=== PATIENT | male | born 1980 | race Caucasian/White ===

== ENCOUNTER 2017-03-04 23:29 | Emergency (ER) | payer MEDICARE, MEDICAID ==
[~2017-03-04] VITALS: Ht 180.3 cm; Wt 79.4 kg
[~2017-03-04 23:29] MED LIST: HYOS0.1216 PO; PRM25T PO
[2017-03-05] MEDS: LIDOCAINE 2% 20 ML (XYLOCAINE) VIAL INJ ONE (00:30)
[2017-03-05] MEDS ORDERED: LIDOCAINE 2% 20 ML (XYLOCAINE) VIAL ONE (00:30)
--- NOTE | 2017-03-05 00:36 | ED Integumentary General ---
General Chief Complaint: Skin/Wound Problems Stated Complaint: ABD PAIN Nursing Triage Note: PT TO ED 8 W/ SON FOR C/O POSS ABSCESS TO RL ABD ONSET YESTERDAY, WORSE TODAY. Source: patient Exam Limitations: no limitations History of Present Illness Time seen by provider: 00:32 Initial Comments Patient noticed a red bump like an ingrown hair on his right inguinal skin along the crease where the elastic of his underwear runs. This started last night and is progressively gotten more red and painful and swollen. He is not on any recent antibiotics, steroids, illness presents and is not diabetic. He denies fevers, chills, malaise, diarrhea Allergies and Home Medications Allergies Coded Allergies: No Known Allergies (Unverified Allergy, Mild, 08/23/09) Home Medications Sulfamethoxazole/Trimethoprim 1 Each Tablet, 1 EACH PO BID for 7 Days, #13 Ref 0 Prescribed by: SRIRAM SWIFT on 03/05/17 0047 Constitutional: No chills, No diaphoresis, No fever Respiratory: No cough, No short of breath Gastrointestinal: see HPI, No abdominal pain, No constipation, No diarrhea, No nausea, No vomiting Genitourinary: No discharge, No dysuria Musculoskeletal: No back pain, No joint pain Skin: see HPI, change in color, No pruritus, rash Past Cdjyfzh-Mpuoai-Sebyjv Hx Patient Social History Alcohol Use: Occasionally Uses Recreational Drug Use: No Smoking Status: Current Everyday Smoker Type Used: Cigarettes Recent Foreign Travel: No Contact w/Someone Who Travel: No Recent Infectious Disease Expo: No Recent Hopitalizations: No Physical Exam Vital Signs Vital Sign - Last 12Hours 03/04/17 23:40 Temp 95.3 Pulse 74 Resp 20 B/P (MAP) 122/95 Pulse Ox 99 O2 Delivery Room Air Capillary Refill : Less Than 3 Seconds General Appearance: WD/WN, no apparent distress Neck: supple, normal inspection Cardiovascular: normal peripheral pulses, regular rate, rhythm Gastrointestinal: normal bowel sounds, non tender, soft, other (superficial the right angle canal is a 1.5 cm diameter red raised erythematous tender fluctuant nodule with a central black pore and a scant amount of Drainage.) Neurologic/Psychiatric: alert, oriented x 3 I&D : Site: right inguinal Blade Size: 11 I & D Procedure: betadine prep, no Wound Packing Progress Cleaned with alcohol and iodine then a needle with 2% lidocaine without epinephrine was infiltrated around the wound and a ring block fashion. Once the patient was ascertained to be numb and then inserted the needle into the area of fluctuance and aspirated about 10 to the [facility]. Went drainage. The 11 blade was then introduced and a cross smith fashion and a modest amount of purulence was expressed. Loculations were broke up with a Q-tip. Light areole or gauze dressing was applied and the patient tolerated the procedure well. Progress/Results/Core Measures Results/Orders My Orders Orders - SRIRAM SWIFT Lidocaine 2% Injection 20 Ml (Xylocaine (03/05/17 00:30) Lidocaine 2% Injection 20 Ml (Xylocaine (03/05/17 00:45) Sulfamethoxazole/Trimet Ds Tab (Bactrim (03/05/17 01:00) Medications Given in ED Current Medications Medications Dose Ordered Sig/Samantha Route Start Time Stop Time Status Last Admin Dose Admin Trimethoprim/ Sulfamethoxazole 1 ea ONCE ONCE PO 03/05/17 01:00 03/05/17 01:01 DC 03/05/17 00:55 1 EA Vital Signs/I&O Vital Sign - Last 12Hours 03/04/17 23:40 Temp 95.3 Pulse 74 Resp 20 B/P (MAP) 122/95 Pulse Ox 99 O2 Delivery Room Air Blood Pressure Mean: 104 Departure Impression Impression: Primary Impression: Abscess Disposition: 01 HOME, SELF-CARE Condition: Improved Departure-Patient Inst. Decision time for Depature: 00:45 Referrals: [facility] (PCP/Family) Primary Care Physician Patient Instructions: Abscess Incision and Drainage (DC) Add. Discharge Instructions: Keep the site clean with soap and water. It's okay to bathe. Do not place anything in the wound is is good for it to drain and bleed. Take the antibiotics either until completion or 2 days after your wound is healed. If you have new or worrisome symptoms such as fevers nausea or increasing pain return to your primary care physician. All discharge instructions reviewed with patient and/or family. Voiced understanding. Scripts Sulfamethoxazole/Trimethoprim (Bactrim Ds Tablet) 1 Each Tablet 1 EACH PO BID for 7 Days, #13 TAB 0 Refills Prov: SRIRAM SWIFT 03/05/17 Copy Copies To 1: MOISES AYALA TITUS J Mar 05, 2017 00:36
[2017-03-05] MEDS ORDERED: SULF1TAB35 PO (00:47)
[2017-03-05] MEDS: TRIM/SULFAMETH 160/800 (SEPTRA DS) TAB PO ONE (00:55)
[2017-03-05 00:57] VITALS: BP 0/0
== END 2017-03-05 00:57 | disposition home or self-care (01) ==
LOC: EDUNIT# 23:29 → ER 23:33
DX: L02.214 Cutaneous abscess of groin (principal); F17.210 Nicotine dependence, cigarettes, uncomplicated
CPT/HCPCS: 99283

== ENCOUNTER 2018-05-04 14:11 | Emergency (ER) | payer MEDICARE, MEDICAID ==
[~2018-05-04] VITALS: Ht 180.3 cm; Wt 84.4 kg
[~2018-05-04 14:11] MED LIST changes: +SULF1TAB35 PO
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
--- OUTSIDE RECORDS SUMMARY | 2018-05-04 14:16 | XMS REPORT ---
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 Name Role Phone ROCHELLE PARSONS CP Unavailable Allergies No Known Allergies Problems Problem Type Condition Code Onset Dates Condition Status Problem Acute sinusitis, unspecified 461.9 Active Assessment Encounter for immunization Z23 Active Problem Dermatophytosis of nail 110.1 Active Medications No Known Medications Procedures Procedure Coding System Code Date SINGLE IMMUNIZATION ADMIN CPT-4 54162 May 24, 2015 FLUARIX QUAD (3 & UP)-GSK-2014 CPT-4 65428 May 24, 2015 Results No Known Results Immunizations Vaccine Administration Date FLUARIX QUAD (3 & UP)-GSK-2014May 24, 2015 Summary Purpose [employer] Submission
[2018-05-04 14:41] LABS: BASOPHILS # (AUTO) 0.1 10^3/uL (0.0-0.1); BASOPHILS % (AUTO) 1 % (0-10); EOSINOPHILS # (AUTO) 0.1 10^3/uL (0.0-0.3); EOSINOPHILS % (AUTO) 1 % (0-10); HEMATOCRIT 48 % (40-54); HEMOGLOBIN 16.3 G/DL (13.3-17.7); LYMPHOCYTES # (AUTO) 1.9 X 10^3 (1.0-4.0); LYMPHOCYTES % (AUTO) 19 % (12-44); MEAN CORPUSCULAR HEMOGLOBIN 28 PG (25-34); MEAN CORPUSCULAR HGB CONC 34 G/DL (32-36); MEAN CORPUSCULAR VOLUME 81 FL (80-99); MEAN PLATELET VOLUME 9.4 FL (7.4-10.4); MONOCYTES # (AUTO) 0.8 X 10^3 (0.0-1.0); MONOCYTES % (AUTO) 8 % (0-12); NEUTROPHILS # (AUTO) 7.2 X 10^3 (1.8-7.8); NEUTROPHILS % (AUTO) 71 % (42-75); PLATELET COUNT 304 10^3/uL (130-400); RED BLOOD COUNT 5.93 10^6/uL (4.35-5.85); RED CELL DISTRIBUTION WIDTH 15.2 % (10.0-14.5); WHITE BLOOD COUNT 10.1 10^3/uL (4.3-11.0)
--- NOTE | 2018-05-04 14:56 | ED General ---
General Chief Complaint: Head/Cervical Problems Stated Complaint: NECK PAIN;KNOT Nursing Triage Note: PT AMB TO ROOM #5 W/O DIFFICULTY. A&OX4. CO KNOT NOTED TO LT POSTERIOR NECK THAT WAS NOTICIED UPON WAKING THIS AM. PT REPORTS PAINFUL TO TOUCH, OTHERWISE UNNOTICED. PT AFEBRILE. DENIES RECENT FEVER OR CHILLS. Nursing Sepsis Screen: No Definite Risk Source of Information: Patient Exam Limitations: No Limitations History of Present Illness Date Seen by Provider: May 04, 2018 Time Seen by Provider: 14:53 Initial Comments The patient is a 38-year-old white male with a speech impediment. He reports that he noticed a lump on his neck today and was worried about the possibility of cancer because his mother of pancreatic cancer. He denies any dental pain or come tenderness. He has had no fever. Timing/Duration: 4-6 Hours Allergies and Home Medications Allergies Coded Allergies: No Known Allergies (Unverified Allergy, Mild, 08/23/09) Home Medications Sulfamethoxazole/Trimethoprim 1 Each Tablet, 1 EACH PO BID Prescribed by: SRIRAM SWIFT on 03/05/17 0047 Patient Home Medication List Home Medication List Reviewed: Yes Review of Systems Review of Systems Constitutional: see HPI EENTM: no symptoms reported Respiratory: no symptoms reported Cardiovascular: no symptoms reported Gastrointestinal: no symptoms reported Genitourinary: no symptoms reported Musculoskeletal: no symptoms reported Skin: no symptoms reported Past Txohzdf-Etxqgi-Doztzd Hx Patient Social History Type Used: Cigarettes Recent Foreign Travel: No Contact w/Someone Who Travel: No Recent Infectious Disease Expo: No Recent Hopitalizations: No Past Medical History Surgeries: No Respiratory: No Cardiac: No Neurological: No Genitourinary: No Gastrointestinal: No Musculoskeletal: No Endocrine: No HEENT: No Cancer: No Psychosocial: No Integumentary: No Blood Disorders: No Physical Exam Vital Signs Vital Signs - First Documented 05/04/18 14:14 Temp 97.3 Pulse 83 Resp 18 B/P (MAP) 154/101 (118) Pulse Ox 99 O2 Delivery Room Air Capillary Refill : Less Than 3 Seconds Height, Weight, BMI Height: 5'11.00" Weight: 186lbs. oz. 84.134829em; BMI Method:Stated General Appearance: No Apparent Distress, WD/WN Eyes: Bilateral Eye Normal Inspection HEENT: Normal ENT Inspection, Other (missing teeth. Others have metallic caps. ) Neck: Normal Inspection Respiratory: Chest Non Tender, Lungs Clear, Normal Breath Sounds, No Accessory Muscle Use, No Respiratory Distress Cardiovascular: Regular Rate, Rhythm, No Edema, No Gallop, No JVD, No Murmur, Normal Peripheral Pulses Gastrointestinal: Normal Bowel Sounds, No Organomegaly, No Pulsatile Mass, Non Tender, Soft Neurologic/Psychiatric: Alert, Oriented x3, No Motor/Sensory Deficits, Normal Mood/Affect Skin: Normal Color, Warm/Dry Lymphatic: No Adenopathy Comments There is a 4 mm in diameter rubbery nodule at the base of the left neck along the border of the trapezius. Progress/Results/Core Measures Suspected Sepsis Recent Fever Within 48 Hours: No Infection Criteria Present: None New/Unexplained Altered Menta: No Sepsis Screen: No Definite Risk SIRS Temperature:97.3 Pulse: 83 Respiratory Rate: 18 Laboratory Tests 05/04/18 14:30: White Blood Count 10.1 Blood Pressure 154 /101 Mean: 118 Laboratory Tests 05/04/18 14:30: Creatinine 0.92, Platelet Count 304, Total Bilirubin 0.3 Results/Orders Lab Results Laboratory Tests Test 05/04/18 14:30 Range/Units White Blood Count 10.1 4.3-11.0 10^3/uL Red Blood Count 5.93 H 4.35-5.85 10^6/uL Hemoglobin 16.3 13.3-17.7 G/DL Hematocrit 48 40-54 % Mean Corpuscular Volume 81 80-99 FL Mean Corpuscular Hemoglobin 28 25-34 PG Mean Corpuscular Hemoglobin Concent 34 32-36 G/DL Red Cell Distribution Width 15.2 H 10.0-14.5 % Platelet Count 304 130-400 10^3/uL Mean Platelet Volume 9.4 7.4-10.4 FL Neutrophils (%) (Auto) 71 42-75 % Lymphocytes (%) (Auto) 19 12-44 % Monocytes (%) (Auto) 8 0-12 % Eosinophils (%) (Auto) 1 0-10 % Basophils (%) (Auto) 1 0-10 % Neutrophils # (Auto) 7.2 1.8-7.8 X 10^3 Lymphocytes # (Auto) 1.9 1.0-4.0 X 10^3 Monocytes # (Auto) 0.8 0.0-1.0 X 10^3 Eosinophils # (Auto) 0.1 0.0-0.3 10^3/uL Basophils # (Auto) 0.1 0.0-0.1 10^3/uL Sodium Level 135 135-145 MMOL/L Potassium Level 4.1 3.6-5.0 MMOL/L Chloride Level 102 98-107 MMOL/L Carbon Dioxide Level 22 21-32 MMOL/L Anion Gap 11 5-14 MMOL/L Blood Urea Nitrogen 10 7-18 MG/DL Creatinine 0.92 0.60-1.30 MG/DL Estimat Glomerular Filtration Rate > 60 BUN/Creatinine Ratio 11 Glucose Level 102 70-105 MG/DL Calcium Level 9.7 8.5-10.1 MG/DL Corrected Calcium 9.3 8.5-10.1 MG/DL Total Bilirubin 0.3 0.1-1.0 MG/DL Aspartate Amino Transf (AST/SGOT) 23 5-34 U/L Alanine Aminotransferase (ALT/SGPT) 33 0-55 U/L Alkaline Phosphatase 63 40-136 U/L Total Protein 8.3 H 6.4-8.2 GM/DL Albumin 4.5 3.2-4.5 GM/DL My Orders Orders - KEN SOUSA MD Cbc With Automated Diff (05/04/18 14:15) Comprehensive Metabolic Panel (05/04/18 14:15) Erythrocyte Sedimentation Rate (05/04/18 14:15) Vital Signs/I&O 05/04/18 14:14 Temp 97.3 Pulse 83 Resp 18 B/P (MAP) 154/101 (118) Pulse Ox 99 O2 Delivery Room Air Capillary Refill : Less Than 3 Seconds Blood Pressure Mean: 118 Departure Impression Primary Impression: lymph node Disposition: HOME, SELF-CARE Condition: Stable/Unchanged Departure-Patient Inst. Decision time for Depature: 14:59 Referrals: [facility] (PCP/Family) Primary Care Physician Add. Discharge Instructions: All discharge instructions reviewed with patient and/or family. Voiced understanding. This is a lymph node. The body use these to help fight inflammation or infection. It can often take several months for this to go down in size. If it does not reduce in size and go away or if in fact others, and that area you should see your provider. KEN SOUSA MD May 04, 2018 14:56
[2018-05-04 14:57] LABS: ALANINE AMINOTRANSFERASE 33 U/L (0-55); ALBUMIN 4.5 GM/DL (3.2-4.5); ALKALINE PHOSPHATASE 63 U/L (40-136); BILIRUBIN,TOTAL 0.3 MG/DL (0.1-1.0); BUN/CREATININE RATIO 11; CALCIUM 9.7 MG/DL (8.5-10.1); CARBON DIOXIDE 22 MMOL/L (21-32); CHLORIDE 102 MMOL/L (98-107); CREATININE SERUM 0.92 MG/DL (0.60-1.30); GFR ESTIMATED > 60; GLUCOSE 102 MG/DL (70-105); POTASSIUM 4.1 MMOL/L (3.6-5.0); SODIUM 135 MMOL/L (135-145); TOTAL PROTEIN 8.3 GM/DL (6.4-8.2)
[2018-05-04 15:14] LABS: ERYTHROCYTE SEDIMENTATION RATE 1 MM/HR (0-15)
[2018-05-04 15:25] VITALS: BP 125/80
== END 2018-05-04 15:25 | disposition home or self-care (01) ==
LOC: EDUNIT# 14:11 → ER 14:12
DX: R59.0 Localized enlarged lymph nodes (principal)
CPT/HCPCS: 36415; 80053; 85025; 85652; 99282

== ENCOUNTER 2019-05-05 17:48 | Emergency (ER) | payer MEDICARE, MEDICAID ==
[2019-05-05] MEDS ORDERED: SULF1TAB35 PO (18:18)
--- NOTE | 2019-05-05 18:19 | ED Upper Extremity ---
General Chief Complaint: Upper Extremity Stated Complaint: RT ARM SWOLLEN Nursing Triage Note: noticed swollen are on R forearm two days, states the swelling is getting worse and had to leave work Nursing Sepsis Screen: No Definite Risk Source: patient Exam Limitations: no limitations History of Present Illness Date Seen by Provider: May 05, 2019 Time Seen by Provider: 18:16 Initial Comments Abscess dorsal right forearm for a few days Onset: other Severity: moderate Pain/Injury Location: right forearm Method of Injury: unknown Modifying Factors: Worse With Movement Allergies and Home Medications Allergies Coded Allergies: No Known Allergies (Unverified Allergy, Mild, 08/23/09) Home Medications Sulfamethoxazole/Trimethoprim 1 Each Tablet, 1 EACH PO BID Prescribed by: SRIRAM SWIFT on 03/05/17 0047 Patient Home Medication List Home Medication List Reviewed: Yes Review of Systems Constitutional: see HPI; No chills, No fever EENTM: see HPI Respiratory: no symptoms reported Cardiovascular: no symptoms reported Genitourinary: no symptoms reported Musculoskeletal: no symptoms reported Skin: see HPI Psychiatric/Neurological: No Symptoms Reported Past Rpxjohm-Phxrbu-Yycdmp Hx Patient Social History Alcohol Use: Denies Use Recreational Drug Use: No Type Used: Cigarettes 2nd Hand Smoke Exposure: No Recent Foreign Travel: No Contact w/Someone Who Travel: No Recent Infectious Disease Expo: No Recent Hopitalizations: No Physical Abuse: No Sexual Abuse: No Mistreated: No Fear: No Immunizations Up To Date Tetanus Booster (TDap): Unknown Seasonal Allergies Seasonal Allergies: No Past Medical History Surgeries: No Respiratory: No Cardiac: No Neurological: No Genitourinary: No Gastrointestinal: No Musculoskeletal: No Endocrine: No HEENT: No Cancer: No Psychosocial: No Integumentary: No Blood Disorders: No Physical Exam Vital Signs Vital Signs - First Documented 05/05/19 17:52 Temp 37.1 Pulse 93 Resp 18 B/P (MAP) 147/89 (108) Capillary Refill : Less Than 3 Seconds Height, Weight, BMI Height: 5'11.00" Weight: 186lbs. oz. 84.915488iq; BMI Method:Stated General Appearance: WD/WN, no apparent distress Respiratory: no respiratory distress, no accessory muscle use Shoulder: normal inspection, non-tender Elbow/Forearm: Right (Abscess quarter sized) Wrist: Yes normal inspection Hand: normal inspection, non-tender Procedures/Interventions I&D : Blade Size: 11 Progress Culture collected Progress/Results/Core Measures Results/Orders Vital Signs/I&O 05/05/19 17:52 Temp 37.1 Pulse 93 Resp 18 B/P (MAP) 147/89 (108) Blood Pressure Mean: 108 Departure Impression Primary Impression: Abscess Disposition: 01 HOME, SELF-CARE Condition: Stable Departure-Patient Inst. Decision time for Depature: 18:16 Referrals: [facility] (PCP/Family) Primary Care Physician Patient Instructions: Abscess Incision and Drainage Add. Discharge Instructions: 1. change the dressing as needed 2. Antibody as directed 3. Return to ER for any concerns. Scripts Sulfamethoxazole/Trimethoprim (Bactrim Ds Tablet) 1 Each Tablet 1 EACH PO BID, #14 TAB Prov: AMANDO CHAMBERS APRN 05/05/19 AMANDO CHAMBERS APRN May 05, 2019 18:19
[2019-05-05 18:22] VITALS: BP 147/89
== END 2019-05-05 18:22 | disposition home or self-care (01) ==
LOC: EDUNIT# 17:48 → ER 17:49
DX: L02.413 Cutaneous abscess of right upper limb (principal)
CPT/HCPCS: 87070; 87077; 87186; 87205; 99282

== ENCOUNTER 2021-12-15 07:56 | Emergency (ER) | payer MEDICAID, MEDICARE ==
[~2021-12-15] VITALS: Ht 180 cm; Wt 83.1 kg
[~2021-12-15 07:56] MED LIST changes: -SULF1TAB35 PO; +SULF1TAB38 PO
[2021-12-15] MEDS ORDERED: ASPIRIN 81 MG CHEW (CHILDREN'S ASA) PO ONE (08:15)
[2021-12-15] MEDS ORDERED: NITROGLYCERIN 0.4 MG SL TABS BTL 25'S SL PRN (08:15)
[2021-12-15 08:20] LABS: BASOPHILS # (AUTO) 0.1 10^3/uL (0.0-0.1); BASOPHILS % (AUTO) 1 % (0-10); EOSINOPHILS # (AUTO) 0.1 10^3/uL (0.0-0.3); EOSINOPHILS % (AUTO) 2 % (0-10); HEMATOCRIT 48 % (40-54); HEMOGLOBIN 15.3 g/dL (13.3-17.7); LYMPHOCYTES # (AUTO) 1.9 10^3/uL (1.0-4.0); LYMPHOCYTES % (AUTO) 25 % (12-44); MEAN CORPUSCULAR HEMOGLOBIN 27 pg (25-34); MEAN CORPUSCULAR HGB CONC 32 g/dL (32-36); MEAN CORPUSCULAR VOLUME 83 fL (80-99); MEAN PLATELET VOLUME 9.2 fL (9.0-12.2); MONOCYTES # (AUTO) 0.7 10^3/uL (0.0-1.0); MONOCYTES % (AUTO) 9 % (0-12); NEUTROPHILS # (AUTO) 4.8 10^3/uL (1.8-7.8); NEUTROPHILS % (AUTO) 63 % (42-75); PLATELET COUNT 322 10^3/uL (130-400); WHITE BLOOD COUNT 7.6 10^3/uL (4.3-11.0)
[2021-12-15 08:31] LABS: ALBUMIN 4.6 GM/DL (3.2-4.5); CHLORIDE 103 MMOL/L (98-107); POTASSIUM 4.2 MMOL/L (3.6-5.0); SODIUM 140 MMOL/L (135-145)
[2021-12-15 08:32] LABS: CALCIUM 10.3 MG/DL (8.5-10.1)
[2021-12-15 08:33] LABS: GLUCOSE 111 MG/DL (70-105); TOTAL PROTEIN 8.1 GM/DL (6.4-8.2)
[2021-12-15 08:34] LABS: CARBON DIOXIDE 25 MMOL/L (21-32)
[2021-12-15 08:35] LABS: BILIRUBIN,TOTAL 0.3 MG/DL (0.1-1.0)
[2021-12-15 08:36] LABS: PROTHROMBIN TIME PATIENT 13.6 SEC (12.2-14.7)
[2021-12-15 08:37] LABS: ALKALINE PHOSPHATASE 65 U/L (40-136); CREATININE SERUM 0.95 MG/DL (0.60-1.30); GFR ESTIMATED 104
[2021-12-15 08:38] LABS: BUN/CREATININE RATIO 15
[2021-12-15 08:40] LABS: ALANINE AMINOTRANSFERASE 24 U/L (0-55); MAGNESIUM 1.9 MG/DL (1.6-2.4)
--- NOTE | 2021-12-15 08:40 | ED Chest Pain ---
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 Source: patient Exam Limitations: no limitations History of Present Illness Date Seen by Provider: December 15, 2021 Time Seen by Provider: 07:57 Initial Comments This 41-year-old gentleman presents to the emergency room with complaints of 2 to 3 days of consistent chest pain in the region of the left pectoralis muscle. He states pain is sometimes improved with deep breathing and feels like a soreness at this time. He rates the pain as 10 at its worst. This morning it ranges from 6-8. He denies any associated symptoms such as shortness of breath, lightheadedness, diaphoresis, or nausea. He had been seen at the [facility] clinic and was advised to seek cardiology referral for intermittent chest pain over the past few months. He declined the cardiology referral due to lack of healthcare coverage. He denies any significant health history. He is a smoker. He is notably hypertensive during initial assessment. Allergies and Home Medications Allergies Coded Allergies: No Known Allergies (Unverified Allergy, Mild, 08/23/09) Patient Home Medication List Home Medication List Reviewed: Yes Sulfamethoxazole/Trimethoprim (Bactrim Ds Tablet) 1 Each Tablet, 1 EACH PO BID Prescribed by: SRIRAM SWIFT on 03/05/17 0047 Sulfamethoxazole/Trimethoprim (Bactrim Ds Tablet) 1 Each Tablet, 1 EACH PO BID Prescribed by: AMANDO CHAMBERS on 05/05/19 1818 Review of Systems Review of Systems Constitutional: no symptoms reported EENTM: No Symptoms Reported Respiratory: No Symptoms Reported Cardiovascular: See HPI Gastrointestinal: No Symptoms Reported Genitourinary: No Symptoms Reported Musculoskeletal: no symptoms reported Skin: no symptoms reported Psychiatric/Neurological: No Symptoms Reported Endocrine: No Symptoms Reported Hematologic/Lymphatic: No Symptoms Reported Past Oxssojt-Pqgpbv-Azlwgv Hx Patient Social History Tobacco Use?: Yes Tobacco type used: Cigarettes Substance use?: No Alcohol Use?: No Immunizations Up To Date Tetanus Booster (TDap): Unknown Seasonal Allergies Seasonal Allergies: No Past Medical History Surgery/Hospitalization HX: testicle surgery years ago Surgeries: Yes Testicular (Related to trauma) Respiratory: No Cardiac: No Neurological: No Genitourinary: No Gastrointestinal: No Musculoskeletal: No Endocrine: No HEENT: No Cancer: No Psychosocial: No Integumentary: No Blood Disorders: No Physical Exam Vital Signs Vital Signs - First Documented 12/15/21 08:07 Temp 37.1 Pulse 76 Resp 17 B/P (MAP) 183/104 (130) Pulse Ox 98 O2 Delivery Room Air Capillary Refill : Less Than 3 Seconds Height, Weight, BMI Height: 5'11.00" Weight: 186lbs. oz. 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 Norm as Tested Skin: Normal Color, Warm/Dry Progress/Results/Core Measures Results/Orders Lab Results Laboratory Tests Test 12/15/21 08:01 12/15/21 10:10 Range/Units White Blood Count 7.6 4.3-11.0 10^3/uL Red Blood Count 5.77 H 4.30-5.52 10^6/uL Hemoglobin 15.3 13.3-17.7 g/dL Hematocrit 48 40-54 % Mean Corpuscular Volume 83 80-99 fL Mean Corpuscular Hemoglobin 27 25-34 pg Mean Corpuscular Hemoglobin Concent 32 32-36 g/dL Red Cell Distribution Width 14.5 10.0-14.5 % Platelet Count 322 130-400 10^3/uL Mean Platelet Volume 9.2 9.0-12.2 fL Immature Granulocyte % (Auto) 1 % Neutrophils (%) (Auto) 63 42-75 % Lymphocytes (%) (Auto) 25 12-44 % Monocytes (%) (Auto) 9 0-12 % Eosinophils (%) (Auto) 2 0-10 % Basophils (%) (Auto) 1 0-10 % Neutrophils # (Auto) 4.8 1.8-7.8 10^3/uL Lymphocytes # (Auto) 1.9 1.0-4.0 10^3/uL Monocytes # (Auto) 0.7 0.0-1.0 10^3/uL Eosinophils # (Auto) 0.1 0.0-0.3 10^3/uL Basophils # (Auto) 0.1 0.0-0.1 10^3/uL Immature Granulocyte # (Auto) 0.1 0.0-0.1 10^3/uL Prothrombin Time 13.6 12.2-14.7 SEC INR Comment 1.0 0.8-1.4 Activated Partial Thromboplast Time 30 24-35 SEC Sodium Level 140 135-145 MMOL/L Potassium Level 4.2 3.6-5.0 MMOL/L Chloride Level 103 98-107 MMOL/L Carbon Dioxide Level 25 21-32 MMOL/L Anion Gap 12 5-14 MMOL/L Blood Urea Nitrogen 14 7-18 MG/DL Creatinine 0.95 0.60-1.30 MG/DL Estimat Glomerular Filtration Rate 104 BUN/Creatinine Ratio 15 Glucose Level 111 H 70-105 MG/DL Calcium Level 10.3 H 8.5-10.1 MG/DL Corrected Calcium 8.5-10.1 MG/DL Magnesium Level 1.9 1.6-2.4 MG/DL Total Bilirubin 0.3 0.1-1.0 MG/DL Aspartate Amino Transf (AST/SGOT) 20 5-34 U/L Alanine Aminotransferase (ALT/SGPT) 24 0-55 U/L Alkaline Phosphatase 65 40-136 U/L Myoglobin 47.3 10.0-92.0 NG/ML Troponin I < 0.028 < 0.028 <0.028 NG/ML Total Protein 8.1 6.4-8.2 GM/DL Albumin 4.6 H 3.2-4.5 GM/DL My Orders Orders - SUMAN COREY MD Ekg Tracing (12/15/21 08:00) Cbc With Automated Diff (12/15/21 08:14) Magnesium (12/15/21 08:14) Chest 1 View, Ap/Pa Only (12/15/21 08:14) Ekg Tracing (12/15/21 08:14) Comprehensive Metabolic Panel (12/15/21 08:14) Myoglobin Serum (12/15/21 08:14) Protime With Inr (12/15/21 08:14) Partial Thromboplastin Time (12/15/21 08:14) O2 (12/15/21 08:14) Monitor-Rhythm Ecg Trace Only (12/15/21 08:14) Lipid Panel (12/16/21 06:00) Ed Iv/Invasive Line Start (12/15/21 08:14) Troponin I Ronnie (12/15/21 08:14) Nitroglycerin 0.4 Mg Btl 25's (Nitrostat (12/15/21 08:15) Aspirin Chewable Tablet (Baby Aspirin Ch (12/15/21 08:15) Troponin I Leslie (12/15/21 10:00) Metoprolol Succinate (Xl) Tab (Toprol Xl (12/15/21 11:15) Pantoprazole Tablet (Protonix Tablet) (12/15/21 11:15) Medications Given in ED Current Medications Medications Dose Ordered Sig/Samantha Route Start Time Stop Time Status Last Admin Dose Admin Aspirin 324 mg ONCE ONCE PO 12/15/21 08:15 12/15/21 08:16 DC 12/15/21 08:18 324 MG Nitroglycerin 0.4 mg UD PRN SL 12/15/21 08:15 12/15/21 08:19 0.4 MG Pantoprazole Sodium 40 mg ONCE ONCE PO 12/15/21 11:15 12/15/21 11:16 DC 12/15/21 11:28 40 MG Vital Signs/I&O 12/15/21 08:07 Temp 37.1 Pulse 76 Resp 17 B/P (MAP) 183/104 (130) Pulse Ox 98 O2 Delivery Room Air Blood Pressure Mean: 130 Progress Progress Note #1: Time: 08:40 Progress Note Patient seen and examined. EKG unremarkable. Labs and x-ray pending. Aspirin and nitroglycerin are being administered. Progress Note #2: Time: 11:45 Progress Note Case was reviewed with Dr. Lindsay. Admission was offered as expedited cardiac rule out was warranted given the persistence of his chest pain. However, since pain is now gone and the patient's son is graduating tonight, the patient declines admission. As an alternative, an appointment was made for Dr. Lindsay's clinic tomorrow. Patient was advised to continue with smoking cessation efforts and take aspirin. He was warned he must return to the emergency room if his chest pain is returning. He expressed understanding. See discharge instructions for further discussion. Initial ECG Impression Date: December 15, 2021 Initial ECG Impression Time: 08:07 Initial ECG Rate: 76 Comment Sinus rhythm with no ST elevation or depression. No abnormal intervals or axis deviation. Questionable left atrial enlargement. Diagnostic Imaging Diagonstic Imaging: Xray Plain Films/CT/US/NM/MRI: chest Comments Chest x-ray viewed by me and draft report reviewed. See report below: NAME: STEPHANIE WORTHINGTON [facility] REC#: [id number] PT STATUS: REG ER : 1980 PHYSICIAN: SUMAN COREY MD ADMIT DATE: 12/15/21/ER Draft Date of Exam:12/15/21 CHEST 1 VIEW, AP/PA ONLY INDICATION: Chest pain starting 2 months ago.. TECHNIQUE: Single view chest 8:39 AM. CORRELATION STUDY: None FINDINGS: The heart size, mediastinal configuration and pulmonary vascularity are within normal limits. The lungs are clear with no consolidating infiltrate. There is no significant effusion or pneumothorax. IMPRESSION: 1. Negative appearing single view chest. Dictated on workstation # [id number] Dict: 12/15/21 0900 Trans: 12/15/21 0900 DO [id number] Interpreted by: JOE PALUMBO DO Departure Impression Primary Impression: Chest pain Qualified Codes: R07.9 - Chest pain, unspecified Disposition: 01 HOME, SELF-CARE Condition: Improved Departure-Patient Inst. Referrals: [facility] (PCP/Family) Primary Care Physician Patient Instructions: Chest Pain (DC) Add. Discharge Instructions: Continue with your efforts to quit smoking. Take your 3 medications as prescribed. Follow-up in Dr. Lindsay's clinic at 9:30 tomorrow morning. See his address and phone number below. You should call today to confirm they have all of the information needed prior to your appointment. 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 Return to the ER if you have recurrent episodes of chest pain or other significant issues. All discharge instructions reviewed with patient and/or family. Voiced understanding. Scripts Omeprazole (Omeprazole) 20 Mg Capsule.dr 20 MG PO DAILY, #30 CAP Prov: SUMAN COREY MD 12/15/21 Metoprolol Succinate (Toprol Xl) 50 Mg Tab.er.24h 50 MG PO DAILY, #30 TAB Prov: SUMAN COREY MD 12/15/21 Aspirin (Aspirin EC) 81 Mg Tablet. 81 MG PO DAILY, #30 TAB Prov: SUMAN COREY MD 12/15/21 SUMAN COREY MD December 15, 2021 08:39
--- NOTE | 2021-12-15 09:01 | Diagnostic Imaging Report ---
INDICATION: Chest pain starting 2 months ago.. TECHNIQUE: Single view chest 8:39 AM. CORRELATION STUDY: None FINDINGS: The heart size, mediastinal configuration and pulmonary vascularity are within normal limits. The lungs are clear with no consolidating infiltrate. There is no significant effusion or pneumothorax. IMPRESSION: 1. Negative appearing single view chest. Dictated by: Dictated on workstation # [id number]
[2021-12-15] MEDS ORDERED: PANTOPRAZOLE 40 MG (PROTONIX) TAB PO ONE (11:15)
[2021-12-15] MEDS ORDERED: meTOproloL SUCCINATE 50 MG (TOPROL XL) TAB PO SCH (11:15)
[2021-12-15] MEDS ORDERED: METO-352 PO (11:43)
[2021-12-15] MEDS ORDERED: OMEP20CA18 PO (11:43)
[2021-12-15] MEDS ORDERED: ASPI-1238 PO (11:43)
[2021-12-15 11:55] VITALS: BP 117/98
== END 2021-12-15 11:55 | disposition home or self-care (01) ==
LOC: EDUNIT# 07:56 → ER 07:57
DX: R07.89 Other chest pain (principal); F17.210 Nicotine dependence, cigarettes, uncomplicated
CPT/HCPCS: 36415; 71045; 80053; 83735; 83874; 84484; 85025; 85610; 85730; 93005; 93041

== ENCOUNTER 2021-12-20 07:41 | Day surgery (SDC) | payer MEDICAID ==
[~2021-12-20] VITALS: Ht 180 cm; Wt 86.0 kg
[~2021-12-20 07:41] MED LIST changes: +ASPI-1238 PO; +METO-352 PO; +OMEP20CA18 PO
[2021-12-20] MEDS ORDERED: ASPIRIN 81 MG CHEW (CHILDREN'S ASA) PO ONE (08:00)
[2021-12-20] MEDS ORDERED: NITROGLYCERIN 0.4 MG SL TABS BTL 25'S SL PRN (08:00)
[2021-12-20 08:13] LABS: BASOPHILS # (AUTO) 0.1 10^3/uL (0.0-0.1); BASOPHILS % (AUTO) 1 % (0-10); EOSINOPHILS # (AUTO) 0.2 10^3/uL (0.0-0.3); EOSINOPHILS % (AUTO) 2 % (0-10); HEMATOCRIT 46 % (40-54); HEMOGLOBIN 14.7 g/dL (13.3-17.7); LYMPHOCYTES # (AUTO) 1.8 10^3/uL (1.0-4.0); LYMPHOCYTES % (AUTO) 21 % (12-44); MEAN CORPUSCULAR HEMOGLOBIN 26 pg (25-34); MEAN CORPUSCULAR HGB CONC 32 g/dL (32-36); MEAN CORPUSCULAR VOLUME 83 fL (80-99); MEAN PLATELET VOLUME 9.4 fL (9.0-12.2); MONOCYTES # (AUTO) 0.9 10^3/uL (0.0-1.0); MONOCYTES % (AUTO) 11 % (0-12); NEUTROPHILS # (AUTO) 5.6 10^3/uL (1.8-7.8); NEUTROPHILS % (AUTO) 65 % (42-75); PLATELET COUNT 291 10^3/uL (130-400); WHITE BLOOD COUNT 8.7 10^3/uL (4.3-11.0)
--- NOTE | 2021-12-20 08:16 | ED Chest Pain ---
General Chief Complaint: Abdominal/GI Problems Stated Complaint: CHEST PAIN Nursing Triage Note: abdominal pain started at 0500 this am, reports paiun before from lower abdominal hernia. currently rates pain 7/10 arrived via ambulance to room 3 Source: patient, old records Exam Limitations: no limitations History of Present Illness Date Seen by Provider: December 20, 2021 Time Seen by Provider: 07:42 Initial Comments This 41-year-old gentleman presents to the emergency room with complaints of left mid to lower chest pain that has been relatively constant since he was last seen in the emergency room on December 15. He was seen and assessed for chest pain on December 16 that resolved during his ER visit. He was cleared after a 4-hour troponin level and was pain free at the time of discharge. He had been offered admission to expedite stress testing but declined as he was anxious to attend his son's graduation. I had made an appointment for him with Dr. Lindsay the next day. According to the patient, that appointment was changed to January 06. He has not yet seen a can carrier. He also reports his left arm felt numb yesterday and he has experienced some shortness of breath with exertion on stairs. Pain is rated as 8/10. Allergies and Home Medications Allergies Coded Allergies: NKANo Known Allergies (Unverified Allergy, Mild, 08/23/09) Patient Home Medication List Home Medication List Reviewed: Yes Aspirin (Aspirin EC) 81 Mg Tablet., 81 MG PO DAILY Prescribed by: SUMAN JACKSON on 12/15/21 1143 Metoprolol Succinate (Toprol Xl) 50 Mg Tab.er.24h, 50 MG PO DAILY Prescribed by: SUMAN JACKSON on 12/15/21 1143 Omeprazole (Omeprazole) 20 Mg Capsule.dr, 20 MG PO DAILY Prescribed by: SUMAN JACKSON on 12/15/21 1143 Sulfamethoxazole/Trimethoprim (Bactrim Ds Tablet) 1 Each Tablet, 1 EACH PO BID Prescribed by: SRIRAM SWIFT on 03/05/17 0047 Sulfamethoxazole/Trimethoprim (Bactrim Ds Tablet) 1 Each Tablet, 1 EACH PO BID Prescribed by: AMANDO CHAMBERS on 05/05/19 1818 Review of Systems Review of Systems Constitutional: no symptoms reported EENTM: No Symptoms Reported Respiratory: See HPI Cardiovascular: See HPI Gastrointestinal: No Symptoms Reported Genitourinary: No Symptoms Reported Musculoskeletal: no symptoms reported Skin: no symptoms reported Psychiatric/Neurological: No Symptoms Reported Endocrine: No Symptoms Reported Hematologic/Lymphatic: No Symptoms Reported Past Qimsbap-Eumgkf-Zgfikw Hx Patient Social History Tobacco Use?: Yes Tobacco type used: Cigarettes Use of E-Cig and/or Vaping dev: No Substance use?: No Alcohol Use?: No Immunizations Up To Date Tetanus Booster (TDap): Unknown Seasonal Allergies Seasonal Allergies: No Past Medical History Surgery/Hospitalization HX: testicle surgery years ago Surgeries: Yes Testicular (Related to trauma) Respiratory: No Cardiac: No Neurological: No Genitourinary: No Gastrointestinal: No Musculoskeletal: No Endocrine: No HEENT: No Cancer: No Psychosocial: No Integumentary: No Blood Disorders: No Physical Exam Vital Signs Capillary Refill : Less Than 3 Seconds Height, Weight, BMI Height: 5'11.00" Weight: 186lbs. oz. 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 Norm as Tested Skin: Normal Color, Warm/Dry Progress/Results/Core Measures Results/Orders Lab Results Laboratory Tests Test 12/20/21 07:58 Range/Units White Blood Count 8.7 4.3-11.0 10^3/uL Red Blood Count 5.59 H 4.30-5.52 10^6/uL Hemoglobin 14.7 13.3-17.7 g/dL Hematocrit 46 40-54 % Mean Corpuscular Volume 83 80-99 fL Mean Corpuscular Hemoglobin 26 25-34 pg Mean Corpuscular Hemoglobin Concent 32 32-36 g/dL Red Cell Distribution Width 14.3 10.0-14.5 % Platelet Count 291 130-400 10^3/uL Mean Platelet Volume 9.4 9.0-12.2 fL Immature Granulocyte % (Auto) 1 % Neutrophils (%) (Auto) 65 42-75 % Lymphocytes (%) (Auto) 21 12-44 % Monocytes (%) (Auto) 11 0-12 % Eosinophils (%) (Auto) 2 0-10 % Basophils (%) (Auto) 1 0-10 % Neutrophils # (Auto) 5.6 1.8-7.8 10^3/uL Lymphocytes # (Auto) 1.8 1.0-4.0 10^3/uL Monocytes # (Auto) 0.9 0.0-1.0 10^3/uL Eosinophils # (Auto) 0.2 0.0-0.3 10^3/uL Basophils # (Auto) 0.1 0.0-0.1 10^3/uL Immature Granulocyte # (Auto) 0.1 0.0-0.1 10^3/uL Prothrombin Time 12.9 12.2-14.7 SEC INR Comment 0.9 0.8-1.4 Activated Partial Thromboplast Time 30 24-35 SEC Sodium Level 139 135-145 MMOL/L Potassium Level 3.9 3.6-5.0 MMOL/L Chloride Level 102 98-107 MMOL/L Carbon Dioxide Level 26 21-32 MMOL/L Anion Gap 11 5-14 MMOL/L Blood Urea Nitrogen 13 7-18 MG/DL Creatinine 1.02 0.60-1.30 MG/DL Estimat Glomerular Filtration Rate 96 BUN/Creatinine Ratio 13 Glucose Level 110 H 70-105 MG/DL Calcium Level 9.1 8.5-10.1 MG/DL Corrected Calcium 8.9 8.5-10.1 MG/DL Magnesium Level 1.8 1.6-2.4 MG/DL Total Bilirubin 0.4 0.1-1.0 MG/DL Aspartate Amino Transf (AST/SGOT) 20 5-34 U/L Alanine Aminotransferase (ALT/SGPT) 25 0-55 U/L Alkaline Phosphatase 66 40-136 U/L Myoglobin 40.3 10.0-92.0 NG/ML Troponin I < 0.028 <0.028 NG/ML Total Protein 7.6 6.4-8.2 GM/DL Albumin 4.2 3.2-4.5 GM/DL My Orders Orders - SUMAN COREY MD Cbc With Automated Diff (12/20/21 07:48) Magnesium (12/20/21 07:48) Chest 1 View, Ap/Pa Only (12/20/21 07:48) Ekg Tracing (12/20/21 07:48) Comprehensive Metabolic Panel (12/20/21 07:48) Myoglobin Serum (12/20/21 07:48) Protime With Inr (12/20/21 07:48) Partial Thromboplastin Time (12/20/21 07:48) O2 (12/20/21 07:48) Monitor-Rhythm Ecg Trace Only (12/20/21 07:48) Lipid Panel (12/21/21 06:00) Ed Iv/Invasive Line Start (12/20/21 07:48) Troponin I Ronnie (12/20/21 07:48) Nitroglycerin 0.4 Mg Btl 25's (Nitrostat (12/20/21 08:00) Aspirin Chewable Tablet (Baby Aspirin Ch (12/20/21 08:00) Medications Given in ED Current Medications Medications Dose Ordered Sig/Samantha Route Start Time Stop Time Status Last Admin Dose Admin Aspirin 324 mg ONCE ONCE PO 12/20/21 08:00 12/20/21 08:01 DC 12/20/21 08:03 324 MG Nitroglycerin 0.4 mg UD PRN SL 12/20/21 08:00 12/20/21 08:03 0.4 MG Vital Signs/I&O Blood Pressure Mean: 97 Progress Progress Note #1: Time: 08:22 Progress Note Patient was interviewed and examined upon arrival. EKG was obtained and compared with prior. There were no significant dynamic changes. Aspirin and nitro are being administered. We will proceed with cardiac work-up. Progress Note #2: Time: 09:41 Progress Note Pain improved to about 3 over 1:10 nitroglycerin. I have discussed the situa tion with Dr. Hobson. Given the patient's persistent pain and requirement of nitroglycerin to alleviate pain, angiography appears to be the most acceptable and appropriate course of action at this time. I have discussed angiography with the patient who seems agreeable. Diagnostic Imaging Diagonstic Imaging: Xray Plain Films/CT/US/NM/MRI: chest Comments NAME: STEPHANIE WOR[facility]INGTON [facility] REC#: [id number] PT STATUS: REG ER : 1980 PHYSICIAN: SUMAN COREY MD ADMIT DATE: 12/20/21/ER Signed Date of Exam:12/20/21 CHEST 1 VIEW, AP/PA ONLY EXAMINATION: Chest radiograph, portable AP view. DATE: 12/20/2021 8:33 AM INDICATION: 41-year-old male, chest pain. COMPARISON: December 15, 2021. FINDINGS: Heart size and mediastinal contours are unchanged. There is no identified pneumothorax. There is no large pleural effusion. There is no identified focal airspace consolidation. IMPRESSION: 1. No identified acute cardiopulmonary abnormality. Dictated by: Dictated on workstation # [id number] Dict: 12/20/21 0849 Trans: 12/20/21901 [facility] [id number] Interpreted by: CONCHITA TOUSSAINT MD Electronically signed by: CONCHITA TOUSSAINT MD 12/20/21901 Departure Communication (Admissions) Time/Spoke to Admitting Phy: 09:25 Dr. Hobson Impression Primary Impression: Chest pain Qualified Codes: R07.9 - Chest pain, unspecified Disposition: ADMITTED INPATIENT Condition: Stable Admissions Decision to Admit Reason: Admit from ER (General) Decision to Admit/Date: December 20, 2021 Time/Decision to Admit Time: 09:25 Departure-Patient Inst. Referrals: [facility] (PCP/Family) Primary Care Physician Copy Copies To 1: [facility]/SUMAN ISLAS MD December 20, 2021 08:16
[2021-12-20 08:30] LABS: ALBUMIN 4.2 GM/DL (3.2-4.5)
[2021-12-20 08:31] LABS: POTASSIUM 3.9 MMOL/L (3.6-5.0)
[2021-12-20 08:32] LABS: CALCIUM 9.1 MG/DL (8.5-10.1)
[2021-12-20 08:33] LABS: INR 0.9 (0.8-1.4); PROTHROMBIN TIME PATIENT 12.9 SEC (12.2-14.7); TOTAL PROTEIN 7.6 GM/DL (6.4-8.2)
[2021-12-20 08:35] LABS: BILIRUBIN,TOTAL 0.4 MG/DL (0.1-1.0)
[2021-12-20 08:37] LABS: CREATININE SERUM 1.02 MG/DL (0.60-1.30)
[2021-12-20 08:39] LABS: MAGNESIUM 1.8 MG/DL (1.6-2.4)
--- NOTE | 2021-12-20 08:55 | Diagnostic Imaging Report ---
EXAMINATION: Chest radiograph, portable AP view. DATE: 12/20/2021 8:33 AM INDICATION: 41-year-old male, chest pain. COMPARISON: December 15, 2021. FINDINGS: Heart size and mediastinal contours are unchanged. There is no identified pneumothorax. There is no large pleural effusion. There is no identified focal airspace consolidation. IMPRESSION: 1. No identified acute cardiopulmonary abnormality. Dictated by: Dictated on workstation # [id number]
[2021-12-20] MEDS ORDERED: MIDAZOLAM 5 MG/5 ML (VERSED) VIAL ONE (10:13)
[2021-12-20] MEDS ORDERED: NITRO DRIP 25000 MCG/D5W 250 ML IV ONE (10:13)
[2021-12-20] MEDS ORDERED: HEParin 1000 UNIT/ML (10ML VIAL) FOR BOLUS ONE (10:13)
[2021-12-20] MEDS ORDERED: VERAPAMIL 5 MG/2 ML (CALAN) VIAL IV ONE (10:13)
[2021-12-20] MEDS ORDERED: fentaNYL INJ 100 MCG/2 ML AMP ONE (10:13)
[2021-12-20] MEDS ORDERED: HEParin (CATH LAB) 1,000 ML IV ONE ×2 (10:14→10:15)
[2021-12-20] MEDS ORDERED: NS IV 1000 ML 1,000 ML ONE (10:14)
[2021-12-20] MEDS ORDERED: LIDOCAINE 1% INJ 20 ML VIAL ONE (10:14)
--- NOTE | 2021-12-20 10:24 | Consultation-Cardiology ---
HPI-Cardiology Cardiology Consultation Date of Consultation 12/20/21 Date of Admission Time Seen by Provider: 10:21 Indication: Chest pain HPI 41 years old gentleman with history of gastroesophageal reflux disease, started on PPI last week. Reported multiple episode of chest pain severe in nature on the left side radiating to the left arm, has been having pain waxing and waning for the past few months. He came into the emergency room last week and did not want to stay in the hospital for a stress test. Returned today with severe chest pain 8-9 over 10 in intensity, given sublingual nitroglycerin and he reported improvement but continued to have some mild chest pain 2-3 in intensity on the left side not radiating. No associated shortness of breath or d iaphoresis. No syncope or near syncopal episodes Home Medications & Allergies Allergies: Coded Allergies: No Known Allergies (Unverified Allergy, Mild, 08/23/09) Home Medication List Reviewed: Yes GVL-Oxlydu-Gnqhab Hx Patient Social History Marital Status: Employed/Student: employed Smoking Status: Current Everyday Smoker Type Used: Cigarettes 2nd Hand Smoke Exposure: No Recent Hopitalizations: No Alcohol Use?: No Immunizations Up To Date Tetanus Booster (TDap): Unknown Past Medical History Discussed below Family Medical History Family Medical Hx Noncontributory Review of Systems-General Review of Systems Constitutional: no symptoms reported EENTM: see HPI, no symptoms reported Respiratory: no symptoms reported, see HPI Cardiovascular: see HPI, chest pain; No edema, No Hx of Intervention, No palpitations, No syncope, No vascular heart diseas, No other Gastrointestinal: no symptoms reported, see HPI Genitourinary: no symptoms reported, see HPI Musculoskeletal: no symptoms reported Skin: no symptoms reported Psychiatric/Neurological: No Symptoms Reported Reviewed Test Results Reviewed Test Results Lab Laboratory Tests Test 12/20/21 07:58 Range/Units White Blood Count 8.7 4.3-11.0 10^3/uL Red Blood Count 5.59 H 4.30-5.52 10^6/uL Hemoglobin 14.7 13.3-17.7 g/dL Hematocrit 46 40-54 % Mean Corpuscular Volume 83 80-99 fL Mean Corpuscular Hemoglobin 26 25-34 pg Mean Corpuscular Hemoglobin Concent 32 32-36 g/dL Red Cell Distribution Width 14.3 10.0-14.5 % Platelet Count 291 130-400 10^3/uL Mean Platelet Volume 9.4 9.0-12.2 fL Immature Granulocyte % (Auto) 1 % Neutrophils (%) (Auto) 65 42-75 % Lymphocytes (%) (Auto) 21 12-44 % Monocytes (%) (Auto) 11 0-12 % Eosinophils (%) (Auto) 2 0-10 % Basophils (%) (Auto) 1 0-10 % Neutrophils # (Auto) 5.6 1.8-7.8 10^3/uL Lymphocytes # (Auto) 1.8 1.0-4.0 10^3/uL Monocytes # (Auto) 0.9 0.0-1.0 10^3/uL Eosinophils # (Auto) 0.2 0.0-0.3 10^3/uL Basophils # (Auto) 0.1 0.0-0.1 10^3/uL Immature Granulocyte # (Auto) 0.1 0.0-0.1 10^3/uL Prothrombin Time 12.9 12.2-14.7 SEC INR Comment 0.9 0.8-1.4 Activated Partial Thromboplast Time 30 24-35 SEC Sodium Level 139 135-145 MMOL/L Potassium Level 3.9 3.6-5.0 MMOL/L Chloride Level 102 98-107 MMOL/L Carbon Dioxide Level 26 21-32 MMOL/L Anion Gap 11 5-14 MMOL/L Blood Urea Nitrogen 13 7-18 MG/DL Creatinine 1.02 0.60-1.30 MG/DL Estimat Glomerular Filtration Rate 96 BUN/Creatinine Ratio 13 Glucose Level 110 H 70-105 MG/DL Calcium Level 9.1 8.5-10.1 MG/DL Corrected Calcium 8.9 8.5-10.1 MG/DL Magnesium Level 1.8 1.6-2.4 MG/DL Total Bilirubin 0.4 0.1-1.0 MG/DL Aspartate Amino Transf (AST/SGOT) 20 5-34 U/L Alanine Aminotransferase (ALT/SGPT) 25 0-55 U/L Alkaline Phosphatase 66 40-136 U/L Myoglobin 40.3 10.0-92.0 NG/ML Troponin I < 0.028 <0.028 NG/ML Total Protein 7.6 6.4-8.2 GM/DL Albumin 4.2 3.2-4.5 GM/DL Physical Exam Physical Exam Vital Signs Capillary Refill : Less Than 3 Seconds Height, Weight, BMI Height: 5'11.00" Weight: 186lbs. oz. 84.708333mi; 26.00 BMI Method:Stated General Appearance: No Apparent Distress, WD/WN Eyes: Bilateral Eye Normal Inspection, Bilateral Eye PERRL, Bilateral Eye EOMI HEENT: PERRL/EOMI, Normal ENT Inspection Neck: Normal Inspection; No JVD Respiratory: Chest Non Tender, Lungs Clear, Normal Breath Sounds, No Accessory Muscle Use, No Respiratory Distress Cardiovascular: Regular Rate, Rhythm, No Edema, No Murmur Gastrointestinal: Normal Bowel Sounds, Non Tender, Soft Back: Normal Inspection, No CVA Tenderness, No Vertebral Tenderness Extremity: Normal Inspection, Non Tender, No Calf Tenderness, No Pedal Edema Neurologic/Psychiatric: Alert, Oriented x3, No Motor/Sensory Deficits, Normal Mood/Affect, fourth officer II-XII Norm as Tested Skin: Normal Color, Warm/Dry Lymphatic: No Adenopathy A/P-Cardiology Admission Diagnosis Chest pain Coronary artery disease Abnormal EKG Tobacco with Assessment/Plan Chest pain nonspecific etiology. Recurrent. Responsive to sublingual nitroglycerin. Had EKG abnormality with peaked T wave in the anterior leads. Has strong family history of heart disease. Active smoker. Discussed the management plan recommended cardiac catheterization. Patient cannot have a stress test while having an active chest pain. Abnormal EKG with peaked T waves in the anterior leads. Could be normal variant. Continue to monitor, evaluate C-reactive protein. Tobaccoism, educated in length about smoking cessation Strong family history of heart disease Gastroesophageal reflux disease CLEMENCIA RAO MD December 20, 2021 10:24
--- NOTE | 2021-12-20 11:07 | Discharge Inst-Post CATH ---
Discharge Inst-CATH/EP Problems Reviewed?: Yes Post Cardiac Cath/EP D/C Inst Follow Up/Plan Follow-up with Dr. Lindsay <b>CARDIAC CATH/EP PROCEDURE DISCHARGE INSTRUCTIONS</b> ACTIVITY * Go Home directly and rest. * Limit activity of the leg (or wrist if it was used) for 7 days including aerobics, swimming, jogging, bicycling, etc. * Restrict stair-climbing for 7 days if possible, if not, climb up with your non-cath leg, then bring together on the same step. * Avoid lifting, pushing, pulling or excessive movement of the affected extremity for 7 days. * Customary sexual activity may be resumed after 2 days-use caution not to use a position that strains or causes pain to the affected extremity. * No driving for 24 hours. * NO SMOKING. * Avoid straining for bowel movements for 7 days. * Gentle walking on level ground is allowed. * Returning to work will depend on the type of procedure and the results. Your doctor will discuss this with you. CALL YOUR DOCTOR FOR ANY OF THE FOLLOWING: *If bleeding from the puncture site occurs- Apply gentle pressure to site with clean cloth and call your doctor or EMS. * If a knot or lump forms under the skin, increases in size, or causes pain. * If bruising appears to be worsening or moving further down your leg instead of disappearing. * Temperature above 101 F. CARE OF YOUR GROIN INCISION; * Bruising or purple discoloration of the skin near the puncture site is common. * You may shower only, no bathtub bathing for 5 days. Be careful to avoid slipping as your leg may feel stiff. * If a closure device was used on your femoral artery, please see the attached guide regarding care of the device and your leg. * Leave dressing on FOR 24 hours. CARE OF YOUR WRIST INCISION; * Bruising or purple discoloration of the skin near the puncture site is common. * You may shower. * DO NOT submerge wrist. * Leave dressing on FOR 24 hours. CLEMENCIA RAO MD December 20, 2021 11:07
--- NOTE | 2021-12-20 11:08 | Conscious Sedation/ASA ---
Conscious Sedation Pre-Proced Time 10:00 ASA Score 3 For ASA 3 and 4: Consider anesthesia and medical clearance. Also, for patients with a history of failed moderate sedation consider anesthesia. Airway Lungs Heart ASA score ASA 1: a normal healthy patient ASA 2: a patient with a mild systemic disease (mid diabetes, controlled hypertension, obesity x ASA 3: a patient with a severe systemic disease that limits activity (angina, COPD, prior Myocardial infarction) ASA 4: a patient with an incapacitating disease that is a constant threat to life (CHF, renal failure) ASA 5: a moribund patient not expected to survive 24 hrs. (ruptured aneurysm) ASA 6: a declared brain- patient whose organs are being harvested. For emergent operations, add the letter E after the classification Mallampati Classification Grade 3 Sedation Plan Analgesia, Amnesia, Plan communicated to team members, Discussed options with patient/fam, Discussed risks with patient/fam The patient is an appropriate candidate to undergo the planned procedure, sedation, and anesthesia. The patient immediately re-assessed prior to indication. CLEMENCIA RAO MD December 20, 2021 11:08
--- NOTE | 2021-12-20 11:13 | Cardiac Cath Report ---
Cardiac Cath Report Physician (s)/Tile Picker (s) Physician CLEMENCIA RAO MD Pre-Procedure Diagnosis Pre-Procedure Diagnosis: Chest pain Post-Procedure Note Procedure Start Date: December 20, 2021 Name of Procedure: Left heart catheterization Aortic arch angiogram Findings/Procedure Note PROCEDURE NOTE: 41-year-old gentleman with recurrent chest pain, current to the emergency room with active chest pain relieved by sublingual nitroglycerin, on my evaluation he reported some residual pain 2-3 over 10 in intensity, no full resolution of his chest pain. Patient was very concerned about the recurrent chest pain episode, last ER visit earlier last week he was offered for admission and stress test and patient needed to leave the hospital. Due to the active chest pain I was hesitant to keep him and proceed with a stress test. I decided to proceed with cardiac catheterization. After explaining the procedure to the patient, all pros and cons were explained, all questions were answered. The patient signed the consent and then he was placed on the cardiac catheterization laboratory. Groin was prepped SL fashion local anesthesia was used. Sheath placed in the right radial artery, [place] catheter was prolapsed to the left ventricular cavity, pressure was measured, pullback LV to aorta was done, engage the right and left coronary system, angiog kamlesh was done. Pulled back to the aortic arch and aortic arch angiogram was done due to the recurrent chest pain severe and normal coronaries. At the end of the procedure the sheath was removed. Vascular band was used FINDINGS: Hemodynamics LV 123/23, end-diastolic pressure of 23 Aorta 117/90 mean of 104 ANATOMY: Left Main is free of obstructive disease Left Anterior Descending is slightly tortuous with mild disease no significant obstructive disease Left Circumflex has no significant obstructive disease Right Coronary Artery is dominant artery with mild disease nonobstructive disease LV Gram was not done, pressure was measured Aorta evaluation done with aortic arch angiogram showing normal aortic arch, no dissection or aneurysm, normal origin of the brachiocephalic artery, left carotid and left subclavian arteries CONCLUSION: 1. Mild coronary artery disease no significant obstructive coronary disease was noted 2. Elevated left ventricular end-diastolic pressure 3. Normal aortic arch and great vessels of the neck DISCUSSION AND RECOMMENDATION: I will evaluate 2D echo, evaluate sedimentation rate/hs-CRP, continue on metoprolol. Planning to discharge him later today. Anesthesia Type: Conscious Sedation Estimated blood loss (mL): 10 ml Contrast Amount: 42 ml Total Radiation Dose: 317 mGy Post-Procedure Diagnosis Post-operative diagnosis: Chest pain Coronary artery disease Hypertension Family history of atherosclerosis Tobaccoism CLEMENCIA RAO MD December 20, 2021 11:13
[2021-12-20 11:15] VITALS: BP 117/79
[2021-12-20] MEDS ORDERED: NS IV 1000 ML 1,000 ML IV SCH (11:15)
[2021-12-20 11:30] VITALS: BP 108/70
[2021-12-20 12:00] VITALS: BP 110/78
[2021-12-20 16:00] VITALS: BP 114/80
== END 2021-12-20 16:55 | disposition home or self-care (01) ==
LOC: EDUNIT# 07:41 → ER 07:42 → SDC 11:02 → CSD 11:15 → SDC 16:55
PROVIDERS: ATTEND Internal Medicine Cardiovascular Disease
DX: R07.9 Chest pain, unspecified (principal); I25.10 Atherosclerotic heart disease of native coronary artery without angina pectoris; I11.9 Hypertensive heart disease without heart failure; K21.9 Gastro-esophageal reflux disease without esophagitis; F17.210 Nicotine dependence, cigarettes, uncomplicated; Z79.82 Long term (current) use of aspirin; Z79.899 Other long term (current) drug therapy
CPT/HCPCS: 36221; 36415; 71045; 80053; 83735; 83874; 84484; 85025; 85610; 85730; 86141; 93005; 93041; 93306; 93458

== ENCOUNTER 2022-04-13 05:28 | Outpatient (CLI) | payer MEDICAID, MEDICARE ==
[~2022-04-13] VITALS: Ht 180.3 cm; Wt 84.8 kg
== END 2022-04-15 16:13 | disposition home or self-care (01) ==
LOC: PREOP 05:28
PROVIDERS: ATTEND Surgery
DX: Z01.818 Encounter for other preprocedural examination (principal)

== ENCOUNTER 2022-04-22 09:44 | Day surgery (SDC) | payer MEDICAID ==
[2022-04-22] VITALS (10 sets, daily range): BP systolic 120–135; BP diastolic 87–101
[~2022-04-22] VITALS: Ht 180 cm; Wt 84.8 kg
[2022-04-22] MEDS ORDERED: LACTATED RINGERS 1,000 ML IV PRN (10:00)
--- NOTE | 2022-04-22 11:43 | Progress Note-Pre Operative ---
Pre-Operative Progress Note Date of Available H&P: Mar 26, 2022 Date H&P Reviewed: Apr 22, 2022 Time H&P Reviewed: 11:42 History & Physical: H&P Reviewed, Patient Examed, No changes noted Pre-Operative Diagnosis: blood in retum, possible fistula BRENDA TERRELL DO Apr 22, 2022 11:43
[2022-04-22] MEDS ORDERED: LIDOCAINE/EPI 2% 1:200,00 (XYLOCAINE) 20 ML VIAL ONE (12:12)
[2022-04-22] MEDS ORDERED: proPOfol 200 MG/20 ML (DIPRIVAN) VIAL IV ONE (12:16)
[2022-04-22] MEDS ORDERED: SEVOFLURANE (ULTANE) 15 ML INHAL SOLN ONE (12:16)
[2022-04-22] MEDS ORDERED: fentaNYL INJ 100 MCG/2 ML AMP ONE (12:16)
[2022-04-22] MEDS ORDERED: LIDOCAINE PF 2% 5 ML (XYLOCAINE) VIAL ONE (12:16)
[2022-04-22] MEDS ORDERED: ONDANSETRON 4 MG/2 ML (SDV) Z0FRAN ONE (12:16)
[2022-04-22] MEDS ORDERED: MIDAZOLAM 2 MG/2 ML (VERSED) VIAL ONE (12:16)
[2022-04-22] MEDS ORDERED: MEPERIDINE (DEMEROL) INJ 50 MG/ML IVP ONE (14:00)
[2022-04-22] MEDS ORDERED: fentaNYL INJ 100 MCG/2 ML AMP IVP ONE (14:00)
[2022-04-22] MEDS ORDERED: ONDANSETRON 4 MG/2 ML (SDV) Z0FRAN IVP PRN (14:00)
[2022-04-22] MEDS ORDERED: morphine INJ 10 MG/ML 1ML (SYR OR VIAL) IVP ONE (14:00)
--- NOTE | 2022-04-22 14:01 | Anesthesia-General Post-Op ---
General Patient Condition Mental Status/LOC: Same as Preop Cardiovascular: Satisfactory Nausea/Vomiting: Absent Respiratory: Satisfactory Pain: Controlled Complications: Absent Post Op Complications Complications None Follow Up Care/Instructions Patient Instructions None needed. Anesthesia/Patient Condition Patient Condition Patient is doing well, no complaints, stable vital signs, no apparent adverse anesthesia problems. No complications reported per nursing. EALGE JENKINS CRNA Apr 22, 2022 14:00
--- NOTE | 2022-04-22 14:33 | Discharge Inst-Simple/Standard ---
Discharge Inst-Standard Patient Instructions/Follow Up Plan of Care/Instructions/FU: 2 WEEKS NIDHI Activity as Tolerated: Yes Discharge Diet: Regular Diet BRENDA TERRELL DO Apr 22, 2022 14:33
--- NOTE | 2022-04-22 21:11 | OPERATIVE REPORT ---
DATE OF SERVICE: 04/22/2022 PREOPERATIVE DIAGNOSIS: Blood in stool, possible fistula. POSTOPERATIVE DIAGNOSIS: Colon polyps, likely healed posterior anal fissure. No fistula tract. PROCEDURE: Colonoscopy with hot biopsy polypectomy x1 and snare polypectomy x2, and exam under anesthesia. ANESTHESIA: General. ESTIMATED BLOOD LOSS: Minimal. SURGEON: Brenda Jung DO. INDICATIONS: The patient is a 42-year-old male who has been having a little bit of blood in stools. He has a possible fistula on exam. He understands risks and benefits of procedure and wished to proceed. Consent was signed in the chart. DESCRIPTION OF PROCEDURE: The patient was taken down to the operating suite, placed in frogleg position. A digital timeout was performed. Digital rectal exam was performed. No palpable polyps, masses or ulcerations. Some slight internal hemorrhoids. The scope was inserted in the rectum and advanced all the way to cecum with minimal difficulty. Prep was adequate. Scope was slowly retracted back. No polyps, masses or ulcerations within the cecum, ascending colon. In the transverse colon, a small polyp was present, which hot biopsy polypectomy was performed. Scope was then continuously retracted back. No other polyps, masses or ulcerations in the remainder of the transverse, descending colon. In the rectosigmoid area, there are 2 polyps for which snare polypectomy was performed. Scope was then continuously retracted back into the rectum where it was also retroflexed noting some slight internal hemorrhoidal disease. Scope was returned to its normal position, slowly withdrawn until completely removed. The patient was then placed in lithotomy position. A Dittmar retractor was inserted posteriorly. There was a little divot that appeared to be possible fistula. Angiocath needle peroxide was inserted into this area and continued to be injected. No fistula was able to be found. This appears to be a blind loop where I think a posterior fissure had healed. No other pathology noted except for internal hemorrhoids. Dittmar retractor was removed and the patient tolerated the procedure well without any complications and taken to recovery room in stable condition. RECOMMENDATIONS: The patient will need repeat colonoscopy in 5 years. Any issues before that be seen at that time. If he continues to have bleeding, he should be reevaluated at that time. Further recommendations pending biopsy results. Job ID: [id number] DocumentID: [id number] Dictated Date: 04/22/2022 14:44:24 Chief Lifestyle Officer Date: 04/22/2022 21:10:25 Dictated By: BRENDA JUNG DO
== END 2022-04-22 15:35 ==
LOC: SDC 09:44
PROVIDERS: ATTEND Surgery
DX: D12.3 Benign neoplasm of transverse colon (principal); D12.8 Benign neoplasm of rectum; K63.5 Polyp of colon; K92.1 Melena; F17.210 Nicotine dependence, cigarettes, uncomplicated
CPT/HCPCS: 87081

== ENCOUNTER 2023-05-08 23:40 | Emergency (ER) | payer MEDICAID, MEDICARE ==
[2023-05-09 00:27] LABS: BASOPHILS # (AUTO) 0.1 10^3/uL (0.0-0.1); BASOPHILS % (AUTO) 1 % (0-10); EOSINOPHILS # (AUTO) 0.2 10^3/uL (0.0-0.3); EOSINOPHILS % (AUTO) 2 % (0-10); HEMATOCRIT 45 % (40-54); HEMOGLOBIN 14.4 g/dL (13.3-17.7); LYMPHOCYTES # (AUTO) 2.8 10^3/uL (1.0-4.0); LYMPHOCYTES % (AUTO) 27 % (12-44); MEAN CORPUSCULAR HEMOGLOBIN 27 pg (25-34); MEAN CORPUSCULAR HGB CONC 32 g/dL (32-36); MEAN CORPUSCULAR VOLUME 84 fL (80-99); MEAN PLATELET VOLUME 9.2 fL (9.0-12.2); MONOCYTES # (AUTO) 0.8 10^3/uL (0.0-1.0); MONOCYTES % (AUTO) 8 % (0-12); NEUTROPHILS # (AUTO) 6.3 10^3/uL (1.8-7.8); NEUTROPHILS % (AUTO) 61 % (42-75); PLATELET COUNT 279 10^3/uL (130-400); WHITE BLOOD COUNT 10.3 10^3/uL (4.3-11.0)
[2023-05-09] MEDS ORDERED: ASPIRIN 81 MG CHEWABLE TABLET PO ONE (00:30)
[2023-05-09 00:32] LABS: CHLORIDE 107 MMOL/L (98-107); POTASSIUM 3.8 MMOL/L (3.6-5.0); SODIUM 140 MMOL/L (135-145)
[2023-05-09 00:33] LABS: PROTHROMBIN TIME PATIENT 13.3 SEC (12.2-14.7)
[2023-05-09 00:35] LABS: GLUCOSE 129 MG/DL (70-105); TOTAL PROTEIN 7.4 GM/DL (6.4-8.2)
[2023-05-09 00:36] LABS: CARBON DIOXIDE 20 MMOL/L (21-32)
[2023-05-09 00:37] LABS: BILIRUBIN,TOTAL 0.2 MG/DL (0.1-1.0)
[2023-05-09 00:38] LABS: ALKALINE PHOSPHATASE 81 U/L (40-136); CREATININE SERUM 0.87 MG/DL (0.60-1.30); GFR ESTIMATED 111
[2023-05-09 00:39] LABS: BUN/CREATININE RATIO 13
[2023-05-09 00:41] LABS: ALANINE AMINOTRANSFERASE 23 U/L (0-55); MAGNESIUM 1.9 MG/DL (1.6-2.4)
[2023-05-09] MEDS ORDERED: KETOROLAC INJ 30 MG/ML VIAL IVP STA (00:42)
--- NOTE | 2023-05-09 02:34 | ED Chest Pain ---
General Chief Complaint: Chest Pain Stated Complaint: CHEST PAIN Source: patient Exam Limitations: no limitations History of Present Illness Date Seen by Provider: May 09, 2023 Time Seen by Provider: 00:21 Initial Comments Here with chest pain that has been going on for couple weeks but started a couple hours ago again tonight to the left side. He was concerned about that and presented for further evaluation. 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 Did have heart cath last year that he reports was negative. He has no nausea, vomiting, diaphoresis, weakness or breathing problems. Does have history of hypertension and does take meds as directed. He was out of the meds for a bit and restarted them a week ago. Timing/Duration: 1-3 hours, changing over time, intermittent (2 weeks) Severity/Quality: moderate, aching Location: other (Left upper chest) Radiation: shoulders (Left) Activities at Onset: none Prior CP/Workup: cardiac cath Modifying Factors: improves with rest ASA po STONE SPLITTER: No NTG SL STONE SPLITTER: No Associated Symptoms: No abdominal pain, No back pain, No diaphoresis, No fever/chills, No nausea/vomiting, No shortness of breath, No weakness Allergies and Home Medications Allergies Coded Allergies: NKANo Known Allergies (Verified Allergy, Mild, 04/22/22) Patient Home Medication List Home Medication List Reviewed: Yes Metoprolol Succinate (Toprol Xl) 50 Mg Tab.er.24h, 50 MG PO DAILY Prescribed by: SUMAN JACKSON on 12/15/21 1143 Review of Systems Review of Systems Constitutional: see HPI; No chills, No fever EENTM: No Symptoms Reported Respiratory: Denies Cough, Denies Shortness of Air Cardiovascular: Chest Pain; Denies Edema, Denies Irregular Heart Rate, Denies Lightheadedness Gastrointestinal: Denies Nausea, Denies Vomiting Genitourinary: No Symptoms Reported Musculoskeletal: see HPI Skin: no symptoms reported Psychiatric/Neurological: No Symptoms Reported Past Aipvghl-Unzvpe-Cibckv Hx Patient Social History Tobacco Use?: No Use of E-Cig and/or Vaping dev: No Substance use?: No Alcohol Use?: No Immunizations Up To Date Tetanus Booster (TDap): Unknown Seasonal Allergies Seasonal Allergies: No Past Medical History Surgery/Hospitalization HX: testicle surgery years ago, HTN Surgeries: Yes Testicular Respiratory: No Cardiac: Yes Hypertension Neurological: Yes Headaches /Migraines Genitourinary: No Gastrointestinal: No Musculoskeletal: No Endocrine: No HEENT: No Cancer: No Psychosocial: No Integumentary: No Blood Disorders: No Family Medical History Reviewed Nursing Family Hx Diabetes Physical Exam Vital Signs Capillary Refill : Height, Weight, BMI Height: 5'11.00" Weight: 186lbs. oz. 84.906738ik; 26.17 BMI Method:Stated General Appearance: No Apparent Distress, WD/WN HEENT: PERRL/EOMI, Pharynx Normal Neck: Non Tender, Supple Respiratory: Lungs Clear, Normal Breath Sounds Cardiovascular: Regular Rate, Rhythm, No Murmur Gastrointestinal: Non Tender, Soft Extremity: Normal Range of Motion, Non Tender, No Calf Tenderness Neurologic/Psychiatric: Alert, Oriented x3 Skin: Normal Color, Warm/Dry Progress/Results/Core Measures Results/Orders Lab Results Laboratory Tests Test 05/09/23 00:13 05/09/23 02:42 Range/Units White Blood Count 10.3 4.3-11.0 10^3/uL Red Blood Count 5.36 4.30-5.52 10^6/uL Hemoglobin 14.4 13.3-17.7 g/dL Hematocrit 45 40-54 % Mean Corpuscular Volume 84 80-99 fL Mean Corpuscular Hemoglobin 27 25-34 pg Mean Corpuscular Hemoglobin Concent 32 32-36 g/dL Red Cell Distribution Width 14.6 H 10.0-14.5 % Platelet Count 279 130-400 10^3/uL Mean Platelet Volume 9.2 9.0-12.2 fL Immature Granulocyte % (Auto) 1 % Neutrophils (%) (Auto) 61 42-75 % Lymphocytes (%) (Auto) 27 12-44 % Monocytes (%) (Auto) 8 0-12 % Eosinophils (%) (Auto) 2 0-10 % Basophils (%) (Auto) 1 0-10 % Neutrophils # (Auto) 6.3 1.8-7.8 10^3/uL Lymphocytes # (Auto) 2.8 1.0-4.0 10^3/uL Monocytes # (Auto) 0.8 0.0-1.0 10^3/uL Eosinophils # (Auto) 0.2 0.0-0.3 10^3/uL Basophils # (Auto) 0.1 0.0-0.1 10^3/uL Immature Granulocyte # (Auto) 0.1 0.0-0.1 10^3/uL Prothrombin Time 13.3 12.2-14.7 SEC INR Comment 1.0 0.8-1.4 Activated Partial Thromboplast Time 31 24-35 SEC Sodium Level 140 135-145 MMOL/L Potassium Level 3.8 3.6-5.0 MMOL/L Chloride Level 107 98-107 MMOL/L Carbon Dioxide Level 20 L 21-32 MMOL/L Anion Gap 13 5-14 MMOL/L Blood Urea Nitrogen 11 7-18 MG/DL Creatinine 0.87 0.60-1.30 MG/DL Estimat Glomerular Filtration Rate 111 BUN/Creatinine Ratio 13 Glucose Level 129 H 70-105 MG/DL Calcium Level 9.0 8.5-10.1 MG/DL Corrected Calcium 9.0 8.5-10.1 MG/DL Magnesium Level 1.9 1.6-2.4 MG/DL Total Bilirubin 0.2 0.1-1.0 MG/DL Aspartate Amino Transf (AST/SGOT) 20 5-34 U/L Alanine Aminotransferase (ALT/SGPT) 23 0-55 U/L Alkaline Phosphatase 81 40-136 U/L Myoglobin 47.8 10.0-92.0 NG/ML Troponin I < 0.028 < 0.028 <0.028 NG/ML Total Protein 7.4 6.4-8.2 GM/DL Albumin 4.0 3.2-4.5 GM/DL My Orders Orders - BARRETT SINGH MD Ekg Tracing (05/09/23 00:) Cbc And Automated Diff (05/09/23:) Magnesium (05/09/23:) Chest 1 View, Ap/Pa Only (05/09/23:) Ekg Tracing (05/09/23:) Comprehensive Metabolic Panel (05/09/23:) Myoglobin Serum (05/09/23:) Protime With Inr (05/09/23:) Partial Thromboplastin Time (05/09/23:) O2 (05/09/23:) Monitor-Rhythm Ecg Trace Only (10/9/23 00:21) Lipid Panel (05/10/23 06:00) Ed Iv/Invasive Line Start (05/09/23 00:21) Troponin I [place] (05/09/23 00:21) Aspirin Chewable Tablet (Aspirin Chewabl (05/09/23 00:30) Ketorolac Injection (Ketorolac Injection (05/09/23 00:42) Troponin I [place] (05/09/23 02:15) Medications Given in ED Current Medications Medications Dose Ordered Sig/Samantha Route Start Time Stop Time Status Last Admin Dose Admin Aspirin 324 mg ONCE ONCE PO 05/09/23 00:30 05/09/23 00:31 DC 05/09/23 00:36 324 MG Progress Progress Note : Progress Note Seen and evaluated. IV, labs including CBC, CMP, coags, myoglobin and troponin ordered. ASA 324 mg p.o. ordered. Toradol 30 mg IV ordered. Monitor patient. Differential diagnosis includes cardiac event, musculoskeletal pain, electrolyte abnormality 0140: Chest x-ray shows no obvious acute abnormality on my interpretation. CBC grossly normal. CMP also grossly normal with slightly elevated glucose at 129 and negative troponin and myoglobin. Coags are negative. We will repeat troponin at 0215. Patient is pain-free currently. Previous heart cath from last year results noted below. 0322: Repeat troponin is negative. Patient is pain-free. Discharged home with return precautions. Patient verbalized understanding instructions and agreement with plan. ANATOMY: Left Main is free of obstructive disease Left Anterior Descending is slightly tortuous with mild disease no significant obstructive disease Left Circumflex has no significant obstructive disease Right Coronary Artery is dominant artery with mild disease nonobstructive disease LV Gram was not done, pressure was measured Aorta evaluation done with aortic arch angiogram showing normal aortic arch, no dissection or aneurysm, normal origin of the brachiocephalic artery, left carotid and left subclavian arteries CONCLUSION: 1. Mild coronary artery disease no significant obstructive coronary disease was noted 2. Elevated left ventricular end-diastolic pressure 3. Normal aortic arch and great vessels of the neck Initial ECG Impression Date: May 09, 2023 Initial ECG Impression Time: 00:14 Initial ECG Rate: 61 Initial ECG Rhythm: Normal Sinus Initial ECG Impression: Normal Comment Sinus rhythm with left atrial abnormality. Normal axis. Right ventricular conduction delay. No evidence of ST elevation [place]. Interpreted by me. Departure Impression Primary Impression: Chest pain Qualified Codes: R07.9 - Chest pain, unspecified Disposition: 01 HOME, SELF-CARE Condition: Improved Departure-Patient Inst. Decision time for Depature: 03:23 Referrals: [facility] [place] (PCP/Family) Primary Care Physician CLEMENCIA RAO MD Patient Instructions: Chest Pain (DC) Add. Discharge Instructions: All discharge instructions reviewed with patient and/or family. Voiced understanding. You may follow-up with Dr. Rao and your primary care doctor for recheck and further evaluation. Call office for appointment. Continue home medications as previously prescribed. Do not stop taking your blood pressure medicines. You may take Tylenol/acetaminophen 1000 mg every 6-8 hours as needed for pain. You may take ibuprofen 600 mg every 8 hours as needed for pain. Return for worse pain, fever, vomiting, weakness, breathing problems or other concerns as needed. BARRETT SINGH MD May 09, 2023 02:34
[2023-05-09 03:31] VITALS: BP 128/92
--- NOTE | 2023-05-09 06:40 | Diagnostic Imaging Report ---
INDICATION: Chest pain AP view of the chest is obtained with comparison made study of 12/20/2021. FINDINGS: Heart size and pulmonary vascularity are within normal limits, and the lungs are clear, bilaterally. IMPRESSION: Unremarkable chest. Dictated by: Dictated on workstation # [id number]
== END 2023-05-09 03:31 | disposition home or self-care (01) ==
LOC: EDUNIT# 23:40 → ER 23:42
DX: R07.89 Other chest pain (principal); I10 Essential (primary) hypertension; Z98.61 Coronary angioplasty status; Z91.148 Patient's other noncompliance with medication regimen for other reason; Z79.899 Other long term (current) drug therapy
CPT/HCPCS: 36415; 71045; 80053; 83735; 83874; 84484; 85025; 85610; 85730; 93005; 93041